=== PATIENT | male | born 1970 | race African-American/Black ===

== ENCOUNTER 2020-11-23 13:56 | Emergency (ER) | payer OTHER ==
[2020-11-23 14:19] VITALS: BP 123/74; PULSE 86; TEMP 98.2; BMI 28.1
[2020-11-23] MEDS ORDERED: MECLIZINE HCL 25 MG TABLET (FP) PO ONE (15:19)
[2020-11-23] MEDS ORDERED: MECLIZINE HCL 25 MG TABLET (FP) ONE (15:21)
== END 2020-11-23 16:27 | disposition home or self-care (01) ==
LOC: JERFT 13:56
DX: R06.02 Shortness of breath (principal)
CPT/HCPCS: 71046-TC-FY; 93005; 93010; 99284-25

== ENCOUNTER 2021-06-03 19:34 | Inpatient (IN) | payer OTHER ==
[2021-06-03 19:46] VITALS: BMI 27.3
[2021-06-03] MEDS ORDERED: MECLIZINE HCL 25 MG TABLET (FP) PO ONE (20:40)
[2021-06-03] MEDS ORDERED: MECLIZINE HCL 25 MG TABLET (FP) ONE (21:35)
[2021-06-03 21:43] LABS: EOS % 1.7 % (0-4.5); HEMATOCRIT 47.3 % (35.4-49); HEMOGLOBIN 15.4 GM/dL (11.7-16.9); LYMPH % 27.1 % (8-40); MCH 26.4 pg (25.7-33.7); MCHC 32.5 g/dl (32.0-35.9); MEAN CELL VOLUME 81.4 fl (80-96); MEAN PLT VOLUME 7.4 fl (7.5-11.1); MONO % 5.8 % (3.8-10.2); NEUT % 64.4 % (42.8-82.8); PLATELET COUNT 249 10^3/uL (134-434); RBC 5.81 M/mm3 (4.00-5.60); RDW 14.2 % (11.9-15.9); WHITE BLOOD COUNT 4.8 K/mm3 (4.0-10.0)
[2021-06-03 21:58] LABS: CHLORIDE 105 mmol/L (98-107); SODIUM 139 mmol/L (136-145)
[2021-06-03 22:00] LABS: CALCIUM 9.4 mg/dL (8.5-10.1)
[2021-06-03 22:01] LABS: ALBUMIN 4.3 g/dl (3.4-5.0); ANION GAP 7 MMOL/L (8-16); BLOOD UREA NITROGEN 10.6 mg/dL (7-18); CO2 27 mmol/L (21-32); GLUCOSE,RANDOM 90 mg/dL (74-106); MAGNESIUM 2.3 mg/dL (1.8-2.4)
[2021-06-03 22:03] LABS: SGPT/ALT 33 U/L (13-61)
[2021-06-03 22:04] LABS: CREATININE 1.2 mg/dL (0.55-1.3); SGOT/AST 21 U/L (15-37)
[2021-06-03 22:05] LABS: BILIRUBIN,TOTAL 0.4 mg/dL (0.2-1); TOT PROT 7.9 g/dl (6.4-8.2)
[2021-06-03 22:07] LABS: ALK PHOS 90 U/L (45-117)
[2021-06-04] MEDS ORDERED: ACETAMINOPHEN 325 MG TABLET (FP) PO PRN (01:39)
[2021-06-04] MEDS ORDERED: POLYETHYLENE GLYCOL (HEALTHYLAX) 3350 17 GM PACKET PO PRN (01:39)
[2021-06-04] MEDS ORDERED: ASPIRIN 81 MG CHEWABLE TABLETS PO ONE (01:50)
[2021-06-04] MEDS ORDERED: ASPIRIN 81 MG CHEWABLE TABLETS ONE (02:22)
[2021-06-04] MEDS ORDERED: MECLIZINE HCL 25 MG TABLET (FP) PO PRN (04:39)
[2021-06-04] MEDS ORDERED: NEBIVOLOL 2.5 MG TABLET (FP) PO SCH (10:00)
[2021-06-04 10:33] VITALS: BP 114/73; PULSE 82; TEMP 98.7
[2021-06-04] MEDS ORDERED: GABAPENTIN 300 MG CAPSULE PO SCH (22:00)
[2021-06-05] MEDS ORDERED: ASPIRIN 325 MG TABLET PO SCH (10:00)
== END 2021-06-04 10:51 | disposition home or self-care (01) | DRG 149 ==
LOC: JER 19:34 → JERBED 06-04 00:27 → OBSVTOIN 06-04 01:39 → JERBED 06-04 10:51
PROVIDERS: ADMIT Internal Medicine; ATTEND Internal Medicine
DX: R42 Dizziness and giddiness (principal); R20.2 Paresthesia of skin; R26.89 Other abnormalities of gait and mobility; E78.5 Hyperlipidemia, unspecified; Z86.16 Personal history of COVID-19
CPT/HCPCS: 36415; 70450-TC; 80053; 83735; 84443; 84484; 85025; 93005; 93010; 99285-25; C9803; G0378; U0003; U0005

== ENCOUNTER 2022-06-01 05:18 | Emergency (ER) | payer OTHER ==
[2022-06-01 05:30] VITALS: RESP 20; BMI 28.8
[2022-06-01 07:52] VITALS: BP 124/90; PULSE 117; TEMP 98.7
[2022-06-01] MEDS ORDERED: TAMSULOSIN HCL 0.4 MG CAP PO ONE (08:12)
[2022-06-01] MEDS ORDERED: TAMSULOSIN HCL 0.4 MG CAP ONE (08:47)
[2022-06-01 10:15] LABS: EPI CELLS 6 /uL (0-25.1); HYALINE CASTS 1 /uL (0-3.1); PH,URINE 5.5 (5.0-8.0); URINE APPEARANCE CLOUDY; URINE BACTERIA 198 /uL (0-1359); URINE BILIRUBIN NEGATIVE (NEGATIVE); URINE COLOR YELLOW; URINE GLUCOSE (UA) NEGATIVE (NEGATIVE); URINE KETONE NEGATIVE (NEGATIVE); URINE LEUK ESTERASE 2+ (NEGATIVE); URINE NITRITE NEGATIVE (NEGATIVE); URINE PROTEIN 1+ (NEGATIVE); URINE RBC 2530 /uL (0-23.9); URINE UROBILINOGEN 0.2 mg/dL (0.2-1.0); URINE WBC 465 /uL (0-25.8)
== END 2022-06-01 13:56 | disposition home or self-care (01) ==
LOC: JER 05:18
DX: R33.9 Retention of urine, unspecified (principal)
CPT/HCPCS: 81003; 87086; 99283-25